=== PATIENT | female | born 1960 | race Caucasian/White ===

== ENCOUNTER → 2020-08-13 | Day surgery (SDC) | payer MEDICARE ==
[~2020-08-13] VITALS: Ht 160 cm; Wt 78.2 kg
[~2020-08-13] MED LIST: ASPIRIN325 MG PO; BYSTOLIC5 MG PO; CATAPRES0.1 MG PO; COREG25 MG PO; EFFEXOR-XR 75 M75 MG PO; HYDRALAZINE25 MG PO; LEVEMIR VI100 UNITS/ SC; LIPITOR40 MG PO; NORVASC5 MG PO; REGLAN5 MG PO; SODIUM BICARBO650 M1 PO; TELMISARTAN 20 MG PO; TRULICITY1.5 MG/0.5 SC; ZANTAC150 MG PO; ZOFRAN4 MG PO
[2020-08-13 08:26] LABS: HCT 33.9 % (37.0-47.0); HGB 11.3 g/dl (12.5-16.0); MCH 31.6 pg (25.0-31.0); MCHC 33.3 g/dL (32.0-36.0); MCV 94.7 fL (78.0-100.0); MPV 11.4 fL (6.0-9.5); RBC 3.58 M/uL (4.20-5.40); RDW 12.8 % (11.5-14.0); WBC 14.2 K/uL (4.0-10.5)
[2020-08-13 08:50] LABS: ALBUMIN 3.9 g/dL (3.4-5.0); BILIRUBIN - TOTAL 0.4 mg/dL (0.2-1.0); BUN/CREAT RATIO (CALC) 5.3 RATIO; CREATININE 5.49 mg/dL (0.51-0.95); POTASSIUM 3.9 mmol/L (3.5-5.1); TOTAL PROTEIN 7.9 g/dL (6.4-8.2)
== END | disposition home or self-care (01) ==
LOC: FAS 07:33
PROVIDERS: Surgery
DX: Z12.11 Encounter for screening for malignant neoplasm of colon (principal); I12.0 Hypertensive chronic kidney disease with stage 5 chronic kidney disease or end stage renal disease; E11.22 Type 2 diabetes mellitus with diabetic chronic kidney disease; N18.6 End stage renal disease; E11.43 Type 2 diabetes mellitus with diabetic autonomic (poly)neuropathy; K31.84 Gastroparesis; E78.00 Pure hypercholesterolemia, unspecified; I25.2 Old myocardial infarction; G47.30 Sleep apnea, unspecified; F41.9 Anxiety disorder, unspecified; F17.210 Nicotine dependence, cigarettes, uncomplicated; Z99.2 Dependence on renal dialysis; Z86.73 Personal history of transient ischemic attack (TIA), and cerebral infarction without residual deficits; Z88.0 Allergy status to penicillin; Z88.8 Allergy status to other drugs, medicaments and biological substances; Z79.82 Long term (current) use of aspirin; Z79.4 Long term (current) use of insulin; Z79.899 Other long term (current) drug therapy
CPT/HCPCS: 36415; 80053; J1610; J2250; J2704; J7030; J7120